=== PATIENT | female | born 1970 ===

== ENCOUNTER 2016-09-10 08:10 | Day surgery (SDC) | payer OTHER ==
[2016-09-10 09:50] VITALS: BMI 27.9
[2016-09-10] MEDS ORDERED: Propofol 10 mg/ml Inj (20 ML) ONE (10:54)
[2016-09-10 13:39] VITALS: TEMP 98.4; O2SAT 99
[2016-09-10 13:43] VITALS: BP 107/59; PULSE 53; RESP 15
== END 2016-09-10 13:46 | disposition home or self-care (01) ==
LOC: C.ENDO 08:10
PROVIDERS: ATTEND Internal Medicine Gastroenterology
DX: K29.50 Unspecified chronic gastritis without bleeding (principal); K20.9 Esophagitis, unspecified; B96.81 Helicobacter pylori [H. pylori] as the cause of diseases classified elsewhere
CPT/HCPCS: 43239; 84703; 88305; 88312; 88342; J2704; J3010

== ENCOUNTER 2017-02-13 18:59 | Emergency (ER) | payer SELFPAY ==
[2017-02-13 18:59] VITALS: BMI 31.8
[2017-02-13 19:13] VITALS: RESP 18
[2017-02-13] MEDS ORDERED: Sodium Chloride 0.9% 1,000 ML IV ONE (19:32)
[2017-02-13] MEDS ORDERED: Sodium Chloride 0.9% 1,000 ML ONE (19:35)
[2017-02-13 19:43] LABS: BASO # 0.1 K/uL (0.0-0.2); BASO % 0.6 % (0.0-2.0); EOS # 0.2 K/uL (0.0-0.7); EOS % 1.8 % (0.0-4.0); HEMATOCRIT 35.9 % (34.0-47.0); LYMPH % 28.1 % (20.0-40.0); MEAN CELL VOLUME 91.4 fL (81.0-99.0); MEAN CORPUSCULAR HEMOGLOBIN 31.2 pg (27.0-31.0); MEAN CORPUSCULAR HGB CONC 34.2 g/dL (33.0-37.0); MEAN PLATELET VOLUME 8.3 fL (7.2-11.7); MONO # 0.6 K/uL (0.0-0.8); MONO % 5.8 % (0.0-10.0); NRBC % 0.1 % (0.0-2.0); RED CELL DISTRIBUTION WIDTH 12.9 % (11.5-14.5); WHITE BLOOD COUNT 10.5 K/uL (4.8-10.8)
[2017-02-13 19:51] LABS: CHLORIDE 101 mmol/L (98-107); POTASSIUM 3.7 mmol/L (3.6-5.2); SODIUM 137 mmol/L (132-148)
[2017-02-13 19:53] LABS: GFR AFRICAN-AMERICAN > 60
[2017-02-13 19:54] LABS: ALB/GLOB RATIO 1.3 (1.0-2.1); ALKALINE PHOSPHATASE 48 U/L (38-126); ALT/SGPT 29 U/L (9-52); AST/SGOT 30 U/L (14-36); BLOOD UREA NITROGEN 14 mg/dL (7-17); CALCIUM 8.8 mg/dl (8.6-10.4); CARBON DIOXIDE 23 mmol/L (22-30); GLUCOSE,RANDOM 100 mg/dL (65-105); RBC URINE 14 /hpf (0-3); TOTAL PROTEIN 7.6 g/dL (6.3-8.3); TRANSITIONAL EPITHIAL 1 /hpf (0-3); URINE BACTERIA MOD (<OCC); WBC URINE 20 /hpf (0-5)
[2017-02-13 19:55] LABS: PH,URINE 6.5 (5.0-8.0); URINE BILIRUBIN NEGATIVE (NEGATIVE); URINE BLOOD 3+ (NEGATIVE); URINE COLOR YELLOW (YELLOW); URINE GLUCOSE (UA) NEGATIVE (Normal); URINE KETONE NEGATIVE (NEGATIVE)
[2017-02-13 19:56] LABS: URINE LEUKOCYTE ESTERASE 1+ Leu/uL (Negative); URINE PROTEIN 30 mg/dL (NEGATIVE)
[2017-02-13] MEDS ORDERED: cefTRIAXone IV 1 gm in Dextros 50 ML IVPB ONE ×2 (20:00→20:25)
--- NOTE | 2017-02-13 20:00 | C.PDOC ---
History Of Present Illness The patient presents today with complaints of left abdominal pain with associated nausea and vomiting since yesterday. The patient denies any associated fever or chills. She offers no additional medical complaints. Time Seen by Provider: 02/13/17 19:59 Chief Complaint (Nursing): Abdominal Pain History Per: Patient History/Exam Limitations: no limitations Onset/Duration Of Symptoms: Days Current Symptoms Are (Timing): Still Present Severity: Moderate Location Of Pain/Discomfort: LLQ Radiation Of Pain To:: None Quality Of Discomfort: "Pain" Associated Symptoms: Nausea, Vomiting. denies: Fever, Chills Alleviating Factors: None Past Medical History Vital Signs: Last Vital Signs Temp 97.9 F 02/13/17 19:09 Pulse 58 L 02/13/17 22:01 Resp 18 02/13/17 22:01 BP 99/53 L 02/13/17 22:01 Pulse Ox 97 02/13/17 22:33 - Medical History PMH: Anxiety, Asthma, Depression, Gall Bladder Disease, HTN Denies: Chronic Kidney Disease Surgical History: Cholecystectomy - [facility] Procedures PACKED CELL TRANSFUSION (05/14/13) Family History: States: No Known Family Hx - Social History Hx Tobacco Use: No Hx Alcohol Use: No Hx Substance Use: No - Immunization History Hx Tetanus Toxoid Vaccination: No Hx Influenza Vaccination: No Hx Pneumococcal Vaccination: No Review Of Systems Constitutional: Negative for: Fever, Chills Gastrointestinal: Positive for: Nausea, Vomiting, Abdominal Pain Physical Exam - Physical Exam Appears: Other (in moderate discomfort) Skin: Warm, Dry Head: Normacephalic Eye(s): bilateral: Normal Inspection Oral Mucosa: Moist Neck: Supple Cardiovascular: Rhythm Regular Respiratory: No Normal Breath Sounds, No Accessory Muscle Use Gastrointestinal/Abdominal: Bowel Sounds, Soft, Tenderness (left lower quadrant tenderness, mild suprapubic discomfort noted), No Mass, No Guarding, No Rebound Extremity: No Deformity, No Swelling Neurological/Psych: Oriented x3, Normal Speech, Normal Cognition ED Course And Treatment - Laboratory Results Result Diagrams: 02/13/17 19:39 02/13/17 19:39 O2 Sat by Pulse Oximetry: 97 (RA) Pulse Ox Interpretation: Normal - CT Scan/US US Other Rad Studies (CT/US): Read By Radiologist CT/US Interpretation: EXAM: US First Trimester (transabdominal and transvaginal). EXAM DATE/TIME: 02/13/17 (8:23pm). CLINICAL HISTORY: 47 year old female. Left flank / left-sided pelvic pain. LLQ pain. Gestational age or LMP: 12/23/16. History of 2 C-sections. Patient history: Possible ureterocele seen in the bladder on today's. US. Serum hCG = 12,328 units. TECHNIQUE: Real-time transabdominal and transvaginal obstetrical ultrasound of the maternal pelvis and a first. trimester with image documentation. COMPARISON: CT ABDOMEN PELVIS of 07/24/15. FINDINGS: The LMP is reported to be: 12/23/16. A small intrauterine fluid collection is seen --- probably an early intrauterine gestational sac. If this. represents an early sac, it corresponds to an expected age = 7 weeks 4 days (MSD = 27.2 mm). No pole and no yolk sac are seen. The uterus is anteverted, measuring 11.5 x 5.6 x 6.4 cm in dimensions. A few Nabothian cysts are noted. The maternal right ovary measures 4.6 x 2.7 x 3.7 cm in dimensions. Two (2) adjacent right ovarian cysts (2.7 cm and 1.9 cm avg. size, respectively). The left ovary measures 2.7 x 2.5 x 2.8 cm in dimensions. Simple left ovarian cyst (2.1 cm avg. size). There is no evidence of torsion on Doppler evaluation. No free pelvic fluid is appreciated. No solid adnexal masses are noted. The cervix is closed, at 3.2 cm length. Possible small left-sided ureterocele (seen on urinary bladder images). IMPRESSION: A small intrauterine fluid collection is seen --- compatible with an early intrauterine gestational sac. Its. size corresponds to an expected age = 7 weeks 4 days (based on the MSD = 27.2 mm). No pole and no yolk sac are seen. Incidental note made of a possible left-sided ureterocele. The findings are compatible with failure. Progress Note: IV fluids and ceftriaxone ordered. US OB ordered. Reevaluation Time: 22:39 Reassessment Condition: Improved Medical Decision Making Medical Decision Making: Upon provider reevaluation patient is feeling better, is medically stable, and requires no further treatment in the ED at this time. Patient will be discharged home with Rx for macrobid . Counseling was provided and all questions were answered regarding diagnosis and need for follow up with the referred clinic. There is agreement to discharge plan. Return if symptoms persist or worsen. Disposition Counseled Patient/Family Regarding: Studies Performed, Diagnosis, Need For Followup, Rx Given - Disposition Referrals: [facility] [Outside] [facility] [Outside] Disposition: HOME/ ROUTINE Disposition Time: 20:00 Condition: FAIR Prescriptions: Nitrofurantoin Macrocrystals [Macrobid] 1 cap PO BID #14 cap Instructions: Urinary Tract Infection in (ED), Threatened Miscarriage (ED) Forms: [facility] (Belarusian) Print Language: PERSIAN - Clinical Impression Clinical Impression: Abdominal pain, Miscarriage - Scribe Statement The provider has reviewed the documentation as recorded by the Jimmy Morley Provider Attestation: All medical record entries made by the Jimmy were at my direction and personally dictated by me. I have reviewed the chart and agree that the record accurately reflects my personal performance of the history, physical exam, medical decision making, and the department course for this patient. I have also personally directed, reviewed, and agree with the discharge instructions and disposition.
[2017-02-13 23:07] VITALS: BP 103/59; PULSE 69; TEMP 97.7; O2SAT 98
--- NOTE | 2017-02-14 09:22 | US ---
PROCEDURE: OB Pelvic Ultrasound HISTORY: llq pain COMPARISON: None available. FINDINGS: UTERUS: Intrauterine gestational sac. Sac diameter corresponds to 7 weeks 4 days. No pole or yolk sac visualized. No cardiac activity identified. The gestational sac is somewhat deformed. Findings are consistent with demise. There is no subchorionic hemorrhage. Uterus measures 11.5 x 5.6 x 6.4 cm. No mass CERVIX: 3.3 cm. Cervix closed. RIGHT OVARY: Measures 4.6 x 2.7 x 3.7 cm. No mass. Normal flow. Two right ovarian cysts, 2.5 x 2.8 x 2.9 cm and 1.8 x 1.8 x 2.2 cm. No solid mass. . LEFT OVARY: Measures 2.7 x 2.5 x 2.8 cm. No mass. Normal flow. Simple cyst, 1.8 x 2.4 x 2.2 cm. FREE FLUID: None. OTHER FINDINGS: Incidentally noted is questionable ureterocele at left bladder base. IMPRESSION: Findings consistent with demise. No pole or cardiac activity identified. Deformed gestational sac corresponds to 7 weeks 4 days. No subchorionic hemorrhage. Bilateral simple ovarian cysts. No evidence of ovarian torsion. Questionable small ureterocele of left bladder base. Preliminary interpretation of this examination was reported by [employer] [facility] at 10:28 p.m. on 02/13/2017. There is concurrence of this report with the preliminary interpretation.
== END 2017-02-13 23:20 | disposition home or self-care (01) ==
LOC: C.ER 18:59
DX: O03.9 Complete or unspecified spontaneous abortion without complication (principal); R10.32 Left lower quadrant pain
CPT/HCPCS: 76805; 76817; 80053; 81001; 84702; 85025; 96374; 99285; J0696; J7040

== ENCOUNTER 2017-02-26 18:47 | Emergency (ER) | payer OTHER ==
[2017-02-26 18:48] VITALS: BMI 31.8
[2017-02-26 18:55] VITALS: RESP 20
--- NOTE | 2017-02-26 19:22 | C.PDOC ---
History Of Present Illness 47 year old female presents to the ED with complaints of vaginal bleeding beginning this morning with associated sever abdominal cramping. Patient was seen in ED on 02/13/2017 and was diagnosed with a failed . She has a surgical history of two c-sections previously and was not experiencing vaginal bleeding or discharge at the time. Patient notes vaginal bleeding and passing of clots when using the bathroom. She denies nausea, vomiting, fever, chills, or dysuria. Time Seen by Provider: 02/26/17 18:59 Chief Complaint (Nursing): Female Genitourinary History Per: Patient History/Exam Limitations: no limitations Onset/Duration Of Symptoms: Hrs Current Symptoms Are (Timing): Still Present Severity: Severe Quality Of Discomfort: Cramping Associated Symptoms: denies: Fever, Chills, Nausea, Vomiting Alleviating Factors: None Recent travel outside of the [place]: No Abnormal Vaginal Bleeding: Yes Past Medical History Reviewed: Historical Data, Nursing Documentation, Vital Signs Vital Signs: Last Vital Signs Temp 97.8 F 02/26/17 18:53 Pulse 66 02/26/17 18:53 Resp 20 02/26/17 18:53 BP 130/75 02/26/17 18:53 Pulse Ox 97 02/26/17 21:59 - Medical History PMH: Anxiety, Asthma, Depression, Gall Bladder Disease, HTN Surgical History: Cholecystectomy - [facility] Procedures PACKED CELL TRANSFUSION (05/14/13) Family History: States: Unknown Family Hx - Social History Hx Tobacco Use: No Hx Alcohol Use: No Hx Substance Use: No - Immunization History Hx Tetanus Toxoid Vaccination: No Hx Influenza Vaccination: No Hx Pneumococcal Vaccination: No Review Of Systems Constitutional: Negative for: Fever, Chills Cardiovascular: Negative for: Chest Pain Respiratory: Negative for: Shortness of Breath Gastrointestinal: Positive for: Abdominal Pain. Negative for: Nausea, Vomiting Genitourinary: Positive for: Vaginal Bleeding. Negative for: Dysuria Physical Exam - Physical Exam Appears: Non-toxic, In Acute Distress (standing next to stress, appears to be in moderate distress) Skin: Warm, Dry Head: Atraumatic Eye(s): bilateral: Normal Inspection Oral Mucosa: Moist Neck: Supple Chest: Symmetrical, No Deformity Cardiovascular: Rhythm Regular, No Murmur Respiratory: Normal Breath Sounds, No Rales, No Rhonchi, No Wheezing Gastrointestinal/Abdominal: Soft, Tenderness (mild suprapubic tenderness ), No Distention, No Guarding, No Rebound Pelvic: No Vaginal Bleeding, No Cervical Motion Tenderness, No Cervix Open ( cervix is closed ), Enlarged Uterus, Tender Uterus Neurological/Psych: Oriented x3 ED Course And Treatment - Laboratory Results Result Diagrams: 02/26/17 19:27 02/26/17 19:27 Interpretation Of Abnormal: WBC slightly elevated. BHCG 43. O2 Sat by Pulse Oximetry: 97 (room air ) Pulse Ox Interpretation: Normal - CT Scan/US US Pelvis Other Rad Studies (CT/US): Read By Radiologist, Radiology Report Reviewed CT/US Interpretation: Impression: 1. No intrauterine gestation. Findings compatible with spontaneous . 2. Heterogeneous material within cervix, likely clot. Clinical correlation is needed. 3. Left Ovarian Cyst. Progress Note: Labs and pelvic US were ordered. Patient was given morphine. Reevaluation Time: 22:33 Reassessment Condition: Improved (Patient appears mroe comfortable.) Disposition Counseled Patient/Family Regarding: Studies Performed, Diagnosis, Need For Followup, Rx Given - Disposition Referrals: [facility] [Outside] Disposition: HOME/ ROUTINE Disposition Time: 22:33 Condition: IMPROVED Prescriptions: Acetaminophen with Codeine [Tylenol with Codeine #3 Tablet] 1 each PO Q4 PRN # 14 tablet PRN Reason: Pain, Severe (8-10) Instructions: Spontaneous Miscarriage (ED) Forms: [employer] (Syriac) Print Language: NIGERIEN - Clinical Impression Clinical Impression: Spontaneous - Scribe Statement The provider has reviewed the documentation as recorded by the Mechelleibles Alonso All medical record entries made by the Mechelleibles were at my direction and personally dictated by me. I have reviewed the chart and agree that the record accurately reflects my personal performance of the history, physical exam, medical decision making, and the department course for this patient. I have also personally directed, reviewed, and agree with the discharge instructions and disposition.
[2017-02-26 19:33] LABS: BASO # 0.1 K/uL (0.0-0.2); EOS # 0.3 K/uL (0.0-0.7); EOS % 1.9 % (0.0-4.0); HEMATOCRIT 36.5 % (34.0-47.0); LYMPH # 3.9 K/uL (1.0-4.3); MEAN CELL VOLUME 91.8 fL (81.0-99.0); MEAN CORPUSCULAR HEMOGLOBIN 31.1 pg (27.0-31.0); MEAN CORPUSCULAR HGB CONC 33.9 g/dL (33.0-37.0); MEAN PLATELET VOLUME 8.6 fL (7.2-11.7); MONO # 0.7 K/uL (0.0-0.8); MONO % 4.9 % (0.0-10.0); RED CELL DISTRIBUTION WIDTH 12.7 % (11.5-14.5); WHITE BLOOD COUNT 13.9 K/uL (4.8-10.8)
[2017-02-26 19:42] LABS: CHLORIDE 96 mmol/L (98-107); POTASSIUM 3.6 mmol/L (3.6-5.2); SODIUM 136 mmol/L (132-148)
[2017-02-26 19:44] LABS: BILIRUBIN,TOTAL 0.5 mg/dL (0.2-1.3); GFR AFRICAN-AMERICAN > 60
[2017-02-26 19:45] LABS: ALB/GLOB RATIO 1.4 (1.0-2.1); ALKALINE PHOSPHATASE 66 U/L (38-126); ALT/SGPT 32 U/L (9-52); AST/SGOT 25 U/L (14-36); BLOOD UREA NITROGEN 16 mg/dL (7-17); CARBON DIOXIDE 23 mmol/L (22-30); GLUCOSE,RANDOM 80 mg/dL (65-105); TOTAL PROTEIN 7.3 g/dL (6.3-8.3)
--- NOTE | 2017-02-26 21:53 | US ---
EXAM: US First Trimester, Transabdominal CLINICAL HISTORY: 47 years old, female; Pain; Pelvic pain; Additional info: Vaginal bleeding TECHNIQUE: Real-time transabdominal obstetrical ultrasound of the maternal pelvis and a first trimester with image documentation. COMPARISON: US - PREG 1ST TRIMESTER/OB TV 02/13/2017 8:53:05 PM FINDINGS: Gestation: No intrauterine gestational sac. Uterus/cervix: Endometrium: 1.0 cm in thickness. Heterogeneous echogenicity within cervix. Ovaries: RIGHT ovary: Not visualized. LEFT ovary: 2.5 x 1.8 x 2.8 cm anechoic lesion. No adnexal masses. Free fluid: No significant free fluid. IMPRESSION: 1. No intrauterine gestation. Findings compatible with spontaneous . 2. Heterogeneous material within cervix, likely clot. Clinical correlation is needed. 3. LEFT ovarian cyst. EXAM: US , Transvaginal CLINICAL HISTORY: 47 years old, female; Pain; Pelvic pain; Additional info: Vaginal bleeding TECHNIQUE: Real-time transvaginal obstetrical ultrasound of the maternal pelvis and a first trimester with image documentation. Transvaginal imaging was used for better evaluation of the fetus and adnexa. COMPARISON: US - PREG 1ST TRIMESTER/OB TV 02/13/2017 8:53:05 PM FINDINGS: Gestation: No intrauterine gestational sac. Uterus/cervix: Endometrium: 1.0 cm in thickness. Heterogeneous echogenicity within cervix. Ovaries: RIGHT ovary: Not visualized. LEFT ovary: 2.5 x 1.8 x 2.8 cm anechoic lesion. No adnexal masses. Free fluid: No significant free fluid.
[2017-02-26 22:05] LABS: RBC URINE 112 /hpf (0-3); URINE BACTERIA RARE (<OCC); URINE BILIRUBIN NEGATIVE (NEGATIVE); URINE BLOOD 3+ (NEGATIVE); URINE COLOR Yellow (YELLOW); URINE GLUCOSE (UA) NORMAL (Normal); URINE KETONE NEGATIVE (NEGATIVE); URINE LEUKOCYTE ESTERASE 2+ Leu/uL (Negative); URINE PROTEIN 2+ mg/dL (NEGATIVE); URINE UROBILINOGEN NORMAL mg/dL (0.2-1.0); WBC URINE 95 /hpf (0-5)
[2017-02-26 22:54] VITALS: BP 130/70; PULSE 74; TEMP 98; O2SAT 98
== END 2017-02-26 22:52 | disposition home or self-care (01) ==
LOC: C.ER 18:47
DX: O03.9 Complete or unspecified spontaneous abortion without complication (principal)
CPT/HCPCS: 76830; 76856; 80053; 81001; 84702; 84703; 85025; 96374; 96376; 99285; J2270

== ENCOUNTER 2017-09-27 09:51 | Emergency (ER) | payer OTHER ==
[2017-09-27 10:03] VITALS: BMI 29.2
[2017-09-27 10:08] VITALS: RESP 18
[2017-09-27] MEDS ORDERED: Sodium Chloride 0.9% 1,000 ML IV ONE (10:18)
--- NOTE | 2017-09-27 10:18 | C.PDOC ---
History Of Present Illness 47 year old female presents to the emergency department with complaints of pelvic pain described as cramping persisting since yesterday, and bright red vaginal bleeding with onset today. Patient reports that she is currently two months , , and reports having miscarriages in 2016 and 2017. Patient denies fever, chest pain, shortness of breath, vomiting, and diarrhea. Time Seen by Provider: 09/27/17 09:57 Chief Complaint (Nursing): Abdominal Pain History Per: Patient Onset/Duration Of Symptoms: Days (1) Location Of Pain/Discomfort: Other (pelvic) Quality Of Discomfort: Cramping Associated Symptoms: Other (vaginal bleeding, no shortness of breath, ). denies : Vomiting, Diarrhea, Chest Pain : 10 Para: 7 Miscarriage: 2 Past Medical History Reviewed: Historical Data, Nursing Documentation, Vital Signs Vital Signs: Last Vital Signs Temp 98 F 09/27/17 12:36 Pulse 78 09/27/17 12:36 Resp 18 09/27/17 12:36 BP 106/76 09/27/17 12:36 Pulse Ox 97 09/27/17 12:43 - Medical History PMH: Anxiety, Asthma, Depression, Gall Bladder Disease, HTN Denies: Chronic Kidney Disease Surgical History: Cholecystectomy - [facility] Procedures PACKED CELL TRANSFUSION (05/14/13) Family History: States: No Known Family Hx - Social History Hx Tobacco Use: No Hx Alcohol Use: No Hx Substance Use: No - Immunization History Hx Tetanus Toxoid Vaccination: No Hx Influenza Vaccination: No Hx Pneumococcal Vaccination: No Review Of Systems Except As Marked, All Systems Reviewed And Found Negative. Constitutional: Negative for: Fever Cardiovascular: Negative for: Chest Pain Respiratory: Negative for: Shortness of Breath Gastrointestinal: Positive for: Abdominal Pain (pelvic). Negative for: Vomiting , Diarrhea Genitourinary: Positive for: Vaginal Bleeding ("bright red") Physical Exam - Physical Exam Appears: In Acute Distress (mildly uncomfortable) Cardiovascular: Rhythm Regular Respiratory: Normal Breath Sounds Gastrointestinal/Abdominal: Tenderness (mild suprapubic), No Guarding, No Rebound ED Course And Treatment - Laboratory Results Result Diagrams: 09/27/17 10:45 09/27/17 10:45 O2 Sat by Pulse Oximetry: 97 (RA) Pulse Ox Interpretation: Normal - CT Scan/US TRANSVAGINAL US Other Rad Studies (CT/US): Read By Radiologist, Radiology Report Reviewed CT/US Interpretation: Accession No. : [id number]. Patient Name / ID : DEVANTE JACQUES / [id number]. Exam Date : 09/27/2017 11:14:37 ( Approved ). Study Comment : Sex / Age : F / 47Y. Creator : Miguel Koenig MD. Dictator : Ladle Car Operator : Administrative Assistant Coordinator : Miguel Koenig MD. Approver2 : Report Date : 09/27/2017 12:28:04. My Comment : . PROCEDURE: Pelvic ultrasound dated 09/27/2017. HISTORY: PELVIC PAIN, BLEEDING, . COMPARISON: Comparison made with prior pelvic ultrasound 03/18/2017. TECHNIQUE : Transabdominal/ transvaginal sonographic evaluation of the pelvis performed. FINDINGS: The uterus anteverted measuring approximately 10.5 x 4.7 x 5.5 cm. Endometrial stripe measures 9 mm. No evidence of intrauterine gestation. The possibility of ectopic cannot be excluded based on this study. Clinical correlation recommended. Follow-up pelvic ultrasound and serial serum beta HCG recommended to exclude the possibility of an ectopic . Cervix measures 3.2 cm with several small nabothian cysts. The right ovary measures approximately 2.8 x 2.5 x 2.9 cm and exhibits arterial flow. Left ovary measures approximately 2.0 x 1.7 x 2.0 cm and also exhibits arterial flow. IMPRESSION: No evidence of intrauterine gestation ; recommend followup serial serum beta HCG and pelvic ultrasound to exclude hospital ectopic which cannot be excluded based on this study. . Findings discussed with Dr. Rick findings are approximately 12:20 p.m. with written down and read back verification. Progress Note: Plan: Bloodwork. CMP. IV Fluids. Urinalysis. US Transvaginal Disposition Counseled Patient/Family Regarding: Studies Performed, Diagnosis, Need For Followup - Disposition Referrals: [facility] [Outside] Disposition: HOME/ ROUTINE Disposition Time: 12:45 Condition: STABLE Additional Instructions: RETURN TO EMERGENCY ROOM IN 48 HOURS FOR REPEAT HORMONE LEVEL, ULTRASOUND USE TYLENOL NEEDED FOR PAIN VUELVA A LA GOLD DE EMERGENCIAS EN 48 HORAS PARA REPETIR EL NIVEL DE HORMONA, ULTRASONIDO USE TYLENOL SEGN SEA NECESARIO PARA DOLOR Instructions: Threatened Miscarriage (DC) Forms: [email or web address] (Yakut) Print Language: MONTSERRATIAN - POA Present On Arrival: None - Clinical Impression Clinical Impression: Miscarriage, Vaginal bleeding during - Scribe Statement The provider has reviewed the documentation as recorded by the Scribe (Dougie Kaminski) Provider Attestation: All medical record entries made by the Scribe were at my direction and personally dictated by me. I have reviewed the chart and agree that the record accurately reflects my personal performance of the history, physical exam, medical decision making, and the department course for this patient. I have also personally directed, reviewed, and agree with the discharge instructions and disposition.
[2017-09-27] MEDS ORDERED: Sodium Chloride 0.9% 1,000 ML ONE (10:23)
[2017-09-27 10:51] LABS: BASO % 0.6 % (0.0-2.0); EOS # 0.1 K/uL (0.0-0.7); EOS % 1.7 % (0.0-4.0); HEMOGLOBIN 12.6 g/dL (11.0-16.0); LYMPH # 2.1 K/uL (1.0-4.3); LYMPH % 32.4 % (20.0-40.0); MEAN CELL VOLUME 89.9 fL (81.0-99.0); MEAN CORPUSCULAR HEMOGLOBIN 31.1 pg (27.0-31.0); MEAN CORPUSCULAR HGB CONC 34.6 g/dL (33.0-37.0); MEAN PLATELET VOLUME 8.4 fL (7.2-11.7); MONO # 0.5 K/uL (0.0-0.8); MONO % 7.1 % (0.0-10.0); NEUT # 3.8 K/uL (1.8-7.0); NEUT % 58.2 % (50.0-75.0); NRBC % 0.2 % (0.0-2.0); RBC 4.06 Mil/uL (3.80-5.20); RED CELL DISTRIBUTION WIDTH 12.9 % (11.5-14.5); WHITE BLOOD COUNT 6.5 K/uL (4.8-10.8)
[2017-09-27 10:58] LABS: SQUAMOUS EPITHIAL 27 /hpf (0-5); URINE BILIRUBIN NEGATIVE (NEGATIVE); URINE BLOOD 3+ (NEGATIVE); URINE CLARITY Hazy (Clear); URINE COLOR Amber (YELLOW); URINE GLUCOSE (UA) 1+ mg/dL (Normal); URINE LEUKOCYTE ESTERASE TRACE Leu/uL (Negative); URINE PROTEIN 2+ mg/dL (NEGATIVE); URINE UROBILINOGEN NORMAL mg/dL (0.2-1.0)
[2017-09-27 11:12] LABS: ALB/GLOB RATIO 1.2 (1.0-2.1); ALBUMIN 3.9 g/dL (3.5-5.0); ALT/SGPT 121 U/L (9-52); AST/SGOT 139 U/L (14-36); BLOOD UREA NITROGEN 10 mg/dL (7-17); CALCIUM 8.5 mg/dl (8.6-10.4); GFR AFRICAN-AMERICAN > 60; GFR NON-AFRICAN AMERICAN > 60
[2017-09-27] MEDS ORDERED: Potassium Chloride 20 mEq ER Tab PO STA (11:45)
[2017-09-27] MEDS ORDERED: Potassium Chloride 20 mEq ER Tab PO ONE (11:52)
--- NOTE | 2017-09-27 12:29 | US ---
PROCEDURE: Pelvic ultrasound dated 09/27/2017. HISTORY: PELVIC PAIN, BLEEDING, COMPARISON: Comparison made with prior pelvic ultrasound 03/18/2017 TECHNIQUE: Transabdominal/ transvaginal sonographic evaluation of the pelvis performed FINDINGS: The uterus anteverted measuring approximately 10.5 x 4.7 x 5.5 cm. Endometrial stripe measures 9 mm. No evidence of intrauterine gestation. The possibility of ectopic cannot be excluded based on this study. Clinical correlation recommended. Follow-up pelvic ultrasound and serial serum beta HCG recommended to exclude the possibility of an ectopic . Cervix measures 3.2 cm with several small nabothian cysts. The right ovary measures approximately 2.8 x 2.5 x 2.9 cm and exhibits arterial flow. Left ovary measures approximately 2.0 x 1.7 x 2.0 cm and also exhibits arterial flow. IMPRESSION: No evidence of intrauterine gestation ; recommend followup serial serum beta HCG and pelvic ultrasound to exclude hospital ectopic which cannot be excluded based on this study. . Findings discussed with Dr. Rick findings are approximately 12:20 p.m. with written down and read back verification.
[2017-09-27 12:36] VITALS: BP 106/76; PULSE 78; TEMP 98
[2017-09-27 12:43] VITALS: O2SAT 97
== END 2017-09-27 13:00 | disposition home or self-care (01) ==
LOC: C.ER 09:51
DX: O03.9 Complete or unspecified spontaneous abortion without complication (principal)
CPT/HCPCS: 76830; 76856; 80053; 81001; 84702; 85025; 86850; 86900; 96360; 99285; J7040

== ENCOUNTER 2018-01-31 11:04 | Observation (INO) | payer OTHER ==
[2018-01-31 11:04] VITALS: BMI 32.3
[2018-01-31] MEDS ORDERED: Dexamethasone 4 mg/1 ml IVP STA (12:04)
[2018-01-31] MEDS ORDERED: Sodium Chloride 0.9% 1,000 ML IV STA (12:04)
[2018-01-31] MEDS ORDERED: DiphenhydrAMINE 50 mg/ml Inj IVP STA (12:04)
[2018-01-31] MEDS ORDERED: DiphenhydrAMINE 50 mg/ml Inj ONE (12:17)
[2018-01-31] MEDS ORDERED: Dexamethasone 4 mg/1 ml ONE (12:18)
[2018-01-31 12:31] LABS: BASO % 0.3 % (0.0-2.0); EOS # 0.2 K/uL (0.0-0.7); EOS % 2.5 % (0.0-4.0); HEMOGLOBIN 12.8 g/dL (11.0-16.0); LYMPH # 1.8 K/uL (1.0-4.3); LYMPH % 21.3 % (20.0-40.0); MEAN CELL VOLUME 90.5 fL (81.0-99.0); MEAN CORPUSCULAR HGB CONC 34.2 g/dL (33.0-37.0); MEAN PLATELET VOLUME 8.8 fL (7.2-11.7); MONO # 0.6 K/uL (0.0-0.8); MONO % 7.2 % (0.0-10.0); NEUT # 5.8 K/uL (1.8-7.0); NEUT % 68.7 % (50.0-75.0); NRBC % 0.1 % (0.0-2.0); RBC 4.15 Mil/uL (3.80-5.20); WHITE BLOOD COUNT 8.4 K/uL (4.8-10.8)
--- NOTE | 2018-01-31 12:46 | C.PDOC ---
History Of Present Illness 48 year old female presents to the emergency department with complaints of a sore throat since 3 days ago. Patient states that she took naproxen last night and woke up with a swollen face this morning. She also feels discomfort and itchy feeling in her throat but denies any fever, vomiting, breathing problems, or changes in her voice. Time Seen by Provider: 01/31/18 11:27 Chief Complaint (Nursing): Allergic Reaction History Per: Patient History/Exam Limitations: no limitations Onset/Duration Of Symptoms: Days Current Symptoms Are (Timing): Still Present Past Medical History Reviewed: Historical Data, Nursing Documentation, Vital Signs Vital Signs: Last Vital Signs Temp 98.6 F 01/31/18 17:06 Pulse 67 01/31/18 17:06 Resp 18 01/31/18 17:06 BP 100/62 01/31/18 17:06 Pulse Ox 97 01/31/18 18:11 - Medical History PMH: Anxiety, Asthma, Depression, Gall Bladder Disease, HTN Denies: Chronic Kidney Disease Surgical History: Cholecystectomy - [facility] Procedures PACKED CELL TRANSFUSION (05/14/13) Family History: States: No Known Family Hx - Social History Hx Tobacco Use: No Hx Alcohol Use: No Hx Substance Use: No - Immunization History Hx Tetanus Toxoid Vaccination: No Hx Influenza Vaccination: No Hx Pneumococcal Vaccination: No Review Of Systems Except As Marked, All Systems Reviewed And Found Negative. Constitutional: Negative for: Fever ENT: Positive for: Other (Itchy sore throat) Cardiovascular: Negative for: Orthopnea Respiratory: Negative for: Shortness of Breath Gastrointestinal: Negative for: Vomiting Neurological: Negative for: Weakness, Numbness Physical Exam - Physical Exam Appears: Non-toxic, No Acute Distress Skin: Warm, Dry Head: Atraumatic, Normacephalic, Swelling (on the upper part of face (lips, cheeks, around the eyes)) Eye(s): bilateral: Normal Inspection, PERRL, EOMI Ear(s): Bilateral: Normal Oral Mucosa: Moist, No Drooling Throat: Normal Neck: Normal, No Midline Cervical Tenderness, No Paracervical Tenderness, Supple , Other (Full ROM; no anterior tenderness) Respiratory: Normal Breath Sounds, No Rales, No Rhonchi, No Wheezing Neurological/Psych: Oriented x3, Normal Speech Gait: Steady ED Course And Treatment - Laboratory Results Result Diagrams: 01/31/18 12:26 01/31/18 12:26 O2 Sat by Pulse Oximetry: 97 (RA) Pulse Ox Interpretation: Normal - Other Rad Chest X-Ray X-Ray: Read By Radiologist Interpretation: FINDINGS: Examination limited by habitus and hypoinflation. LUNGS: No focal consolidation. Please note that chest x-ray has limited sensitivity for the detection of pulmonary masses. PLEURA: No significant pleural effusion identified. No definite pneumothorax . CARDIOVASCULAR: Heart size appears borderline enlarged. OSSEOUS STRUCTURES: Degenerative changes of the spine. VISUALIZED UPPER ABDOMEN: Unremarkable. OTHER FINDINGS: None. IMPRESSION: No focal consolidation, significant pleural effusion, or definite pneumothorax identified. Progress Note: Labs, chest x-ray, soft tissue neck x-ray, and urinalysis ordered. Patient was given Benadryl, decadron, Pepcid, solumedrol, heparin, and IV fluids. X-rays showed no acute fractures. Patient was observed in the ER for 5 hours but she was still swelling and states she feels the same. I spoke with hospitalist Dr. Dawkins and she accepted her to telemetry for observation. Disposition - Disposition Disposition: HOSPITALIZED Disposition Time: 16:26 Condition: FAIR - Clinical Impression Clinical Impression: Angioedema, Sore throat - PA / ASSURANCE SPECIALIST / Resident Statement MD/DO has reviewed & agrees with the documentation as recorded. - Scribe Statement The provider has reviewed the documentation as recorded by the Scribe Fallon Little All medical record entries made by the Scribe were at my direction and personally dictated by me. I have reviewed the chart and agree that the record accurately reflects my personal performance of the history, physical exam, medical decision making, and the department course for this patient. I have also personally directed, reviewed, and agree with the discharge instructions and disposition. Decision To Admit - Pt Status Changed To: Hospital Disposition Of: Observation - . Bed Request Type: Telemetry Admitting Physician: Sonia Dawkins Patient Diagnosis: Angioedema, Sore throat
[2018-01-31 12:47] LABS: CALCIUM 8.6 mg/dl (8.6-10.4); GFR NON-AFRICAN AMERICAN > 60
[2018-01-31 12:48] LABS: ALB/GLOB RATIO 1.5 (1.0-2.1); ALBUMIN 4.3 g/dL (3.5-5.0); ALT/SGPT 67 U/L (9-52); AST/SGOT 63 U/L (14-36); BLOOD UREA NITROGEN 19 mg/dL (7-17)
[2018-01-31 13:33] LABS: HCG,QUALITATIVE URINE NEGATIVE (NEGATIVE)
[2018-01-31 13:36] LABS: SQUAMOUS EPITHIAL 3 /hpf (0-5); URINE BILIRUBIN NEGATIVE (NEGATIVE); URINE BLOOD NEGATIVE (NEGATIVE); URINE CLARITY Hazy (Clear); URINE COLOR Amber (YELLOW); URINE GLUCOSE (UA) NORMAL (Normal); URINE LEUKOCYTE ESTERASE NEG Leu/uL (Negative); URINE PROTEIN 1+ mg/dL (NEGATIVE); URINE UROBILINOGEN NORMAL mg/dL (0.2-1.0)
--- NOTE | 2018-01-31 16:41 | RAD ---
HISTORY: sore throat, facial swelling COMPARISON: None available TECHNIQUE: Chest, one view. FINDINGS: Examination limited by habitus and hypoinflation. LUNGS: No focal consolidation. Please note that chest x-ray has limited sensitivity for the detection of pulmonary masses. PLEURA: No significant pleural effusion identified. No definite pneumothorax . CARDIOVASCULAR: Heart size appears borderline enlarged. OSSEOUS STRUCTURES: Degenerative changes of the spine. VISUALIZED UPPER ABDOMEN: Unremarkable. OTHER FINDINGS: None. IMPRESSION: No focal consolidation, significant pleural effusion, or definite pneumothorax identified.
--- NOTE | 2018-01-31 17:07 | CP.PCM.HP ---
History of Present Illness - History of Present Illness History of Present Illness: PGY-[address] Templeton Patient is a 48 year old female with no significant PMHx presents with acute lip /facial swelling and voice changes that started around 2pm. The patient denies any history of allergies. She had been feeling congested since but this morning her voice deepened and she noticed some swelling of the lips. Patient did take naproxen today but says she takes regularly without reaction. Pt denies any new nuts, fruits, insect bites. Patient denies having any shortness of breath but has experienced some throat tenderness. Pt denies fevers, dizziness, headache, wheezing, choking. Present on Admission - Present on Admission Any Indicators Present on Admission: No Past Patient History - Past Medical History & Family History Past Medical History?: Yes - Past Social History Smoking Status: Never Smoked - CARDIAC Hx Hypertension: Yes - PULMONARY Hx Asthma: Yes - NEUROLOGICAL Hx Neurological Disorder: No - HEENT Hx HEENT Problems: No - RENAL Hx Chronic Kidney Disease: No - ENDOCRINE/METABOLIC Hx Endocrine Disorders: No - HEMATOLOGICAL/ONCOLOGICAL Hx Blood Disorders: No - INTEGUMENTARY Hx Dermatological Problems: No - MUSCULOSKELETAL/RHEUMATOLOGICAL Hx Musculoskeletal Disorders: No - GASTROINTESTINAL Hx Gall Bladder Disease: Yes - GENITOURINARY/GYNECOLOGICAL Hx Genitourinary Disorders: No - PSYCHIATRIC Hx Anxiety: Yes Hx Depression: Yes Hx Substance Use: No - SURGICAL HISTORY Hx Cholecystectomy: Yes - ANESTHESIA Hx Anesthesia: Yes Hx Anesthesia Reactions: No Hx Malignant Hyperthermia: No Meds Allergies/Adverse Reactions: Allergies Allergy/AdvReac Type Severity Reaction Status Date / Time No Known Allergies Allergy Verified 09/27/17 10:04 Physical Exam - Head Exam Head Exam: ATRAUMATIC Additional comments: +Mild swelling of the lips, no erythema, exudate, or color changes appreciated - Eye Exam Eye Exam: EOMI, Normal appearance Pupil Exam: NORMAL ACCOMODATION - ENT Exam ENT Exam: Mucous Membranes Moist Additional comments: +Mild tonsilar swelling, airway patent. No erythema. - Neck Exam Neck exam: Positive for: Full Rom, Normal Inspection. Negative for: Lymphadenopathy, Tenderness, Thyromegaly - Respiratory Exam Respiratory Exam: Clear to Auscultation Bilateral, NORMAL BREATHING PATTERN. absent: Accessory Muscle Use, Chest Wall Tenderness, Decreased Breath Sounds, Rales, Rhonchi, Wheezes, Respiratory Distress - Cardiovascular Exam Cardiovascular Exam: REGULAR RHYTHM, RRR, +S1, +S2. absent: JVD - GI/Abdominal Exam GI & Abdominal Exam: Normal Bowel Sounds, Soft. absent: Rigid - Rectal Exam Rectal Exam: NORMAL INSPECTION - Extremities Exam Extremities exam: Positive for: normal inspection. Negative for: joint swelling , pedal edema - Neurological Exam Neurological exam: Alert, CN II-XII Intact, Oriented x3 - Skin Skin Exam: Dry, Normal Color, Warm Results - Vital Signs Recent Vital Signs: Last Vital Signs Temp 98.8 F 01/31/18 14:41 Pulse 64 01/31/18 14:41 Resp 16 01/31/18 14:41 BP 100/64 01/31/18 14:41 Pulse Ox 97 01/31/18 16:27 - Labs Result Diagrams: 01/31/18 12:26 01/31/18 12:26 Labs: Laboratory Results - last 24 hr 01/31/18 01/31/18 01/31/18 12:26 12:26 13:13 WBC 8.4 RBC 4.15 Hgb 12.8 Hct 37.6 MCV 90.5 MCH 31.0 MCHC 34.2 RDW 13.0 Plt Count 235 MPV 8.8 Neut % (Auto) 68.7 Lymph % (Auto) 21.3 Esmeralda % (Auto) 7.2 Eos % (Auto) 2.5 Baso % (Auto) 0.3 Neut # (Auto) 5.8 Lymph # (Auto) 1.8 Esmeralda # (Auto) 0.6 Eos # (Auto) 0.2 Baso # (Auto) 0.0 Sodium 138 Potassium 3.8 Chloride 104 Carbon Dioxide 21 L Anion Gap 17 BUN 19 H Creatinine 0.4 L Est GFR ( Amer) > 60 Est GFR (Non-Af Amer) > 60 Random Glucose 99 Calcium 8.6 Total Bilirubin 1.1 AST 63 H D ALT 67 H D Alkaline Phosphatase 76 Total Protein 7.2 Albumin 4.3 Globulin 2.9 Albumin/Globulin Ratio 1.5 Urine Color Claribel Urine Clarity Hazy Urine pH 5.0 Ur Specific [place] 1.035 H Urine Protein 1+ H Urine Glucose (UA) Normal Urine Ketones Negative Urine Blood Negative Urine Nitrate Negative Urine Bilirubin Negative Urine Urobilinogen Normal Ur Leukocyte Esterase Neg Urine WBC (Auto) 2 Urine RBC (Auto) 1 Ur Squamous Epith Cells 3 Urine HCG, Qual Negative Assessment & Plan - Assessment and Plan (Free Text) Assessment: 1) Facial/tongue swelling * Labs in ED - CBC w dif CMP * Admit for 24 hours observation * Benadry 25mg Stat in ED * Benadryl 25 mg q8h * Pepcid 20mg 20mg BID * Prednisone 60mg IVP BID * CXR 01/31: neg for acute pathology * Neck/soft tissue XR (01/31): Read pending 2) Prophylaxis * VTE: Heparine 5,00 U SC Q Rodri Wolff, PGY-1 Patient seen and discussed with Dr. Templeton
[2018-01-31] MEDS ORDERED: MethylPREDNISolone 40 mg Vial IVP SCH (18:00)
[2018-01-31] MEDS: MethylPREDNISolone 40 mg Vial IVP SCH (19:11)
[2018-01-31 23:50] VITALS: RESP 20
[2018-02-01 07:33] VITALS: BP 110/65; TEMP 97.6; O2SAT 97
[2018-02-01 07:57] VITALS: PULSE 68
[2018-02-01 08:29] LABS: BASO % 0.1 % (0.0-2.0); HEMOGLOBIN 12.5 g/dL (11.0-16.0); LYMPH # 1.9 K/uL (1.0-4.3); LYMPH % 14.3 % (20.0-40.0); MEAN CELL VOLUME 90.9 fL (81.0-99.0); MEAN CORPUSCULAR HEMOGLOBIN 30.9 pg (27.0-31.0); MEAN PLATELET VOLUME 9.1 fL (7.2-11.7); MONO # 0.4 K/uL (0.0-0.8); NEUT # 10.9 K/uL (1.8-7.0); NEUT % 82.6 % (50.0-75.0); RBC 4.04 Mil/uL (3.80-5.20); RED CELL DISTRIBUTION WIDTH 12.9 % (11.5-14.5)
[2018-02-01 08:33] LABS: ALB/GLOB RATIO 1.4 (1.0-2.1); ALBUMIN 4.2 g/dL (3.5-5.0); ALT/SGPT 70 U/L (9-52); AST/SGOT 36 U/L (14-36); BLOOD UREA NITROGEN 16 mg/dL (7-17); CALCIUM 8.9 mg/dl (8.6-10.4); GFR NON-AFRICAN AMERICAN > 60
[2018-02-01 08:34] LABS: WHITE BLOOD COUNT 13.2 K/uL (4.8-10.8)
[2018-02-01] MEDS ORDERED: Potassium Chloride 10 mEq ER Tab PO STA (08:55)
[2018-02-01] MEDS: MethylPREDNISolone 40 mg Vial IVP SCH (09:07)
--- NOTE | 2018-02-01 09:28 | RAD ---
Soft tissue neck exam 01/31/2018. History: Throat pain. Swollen face. Rule out epiglottitis. AP and lateral views of the neck with soft tissue technique performed. Findings: The current study reveals no evidence of significant prevertebral soft tissue swelling. The epiglottis does not appear significantly enlarged or edematous. Airway patent. Osseous structures unremarkable. Impression: No evidence to suggest epiglottitis. No significant prevertebral soft tissue swelling. . Consider followup CT scan of the neck if further evaluation is required
--- NOTE | 2018-02-01 10:58 | CP.PCM.DIS ---
Provider - Provider Date of Admission: 01/31/18 16:22 Attending physician: Sonia Dawkins DO Time Spent in preparation of Discharge (in minutes): 35 Hospital Course - Lab Results Lab Results: Most Recent Lab Values WBC 13.2 K/uL (4.8-10.8) H D 02/01/18 08:13 RBC 4.04 Mil/uL (3.80-5.20) 02/01/18 08:13 Hgb 12.5 g/dL (11.0-16.0) 02/01/18 08:13 Hct 36.7 % (34.0-47.0) 02/01/18 08:13 MCV 90.9 fL (81.0-99.0) 02/01/18 08:13 MCH 30.9 pg (27.0-31.0) 02/01/18 08:13 MCHC 34.0 g/dL (33.0-37.0) 02/01/18 08:13 RDW 12.9 % (11.5-14.5) 02/01/18 08:13 Plt Count 278 K/uL (130-400) 02/01/18 08:13 MPV 9.1 fL (7.2-11.7) 02/01/18 08:13 Neut % (Auto) 82.6 % (50.0-75.0) H 02/01/18 08:13 Lymph % (Auto) 14.3 % (20.0-40.0) L 02/01/18 08:13 [place] % (Auto) 3.0 % (0.0-10.0) 02/01/18 08:13 Eos % (Auto) 0.0 % (0.0-4.0) 02/01/18 08:13 Baso % (Auto) 0.1 % (0.0-2.0) 02/01/18 08:13 Neut # (Auto) 10.9 K/uL (1.8-7.0) H 02/01/18 08:13 Lymph # (Auto) 1.9 K/uL (1.0-4.3) 02/01/18 08:13 [place] # (Auto) 0.4 K/uL (0.0-0.8) 02/01/18 08:13 Eos # (Auto) 0.0 K/uL (0.0-0.7) 02/01/18 08:13 Baso # (Auto) 0.0 K/uL (0.0-0.2) 02/01/18 08:13 Sodium 139 mmol/L (132-148) 02/01/18 08:13 Potassium 3.4 mmol/L (3.6-5.2) L 02/01/18 08:13 Chloride 107 mmol/L (98-107) 02/01/18 08:13 Carbon Dioxide 21 mmol/L (22-30) L 02/01/18 08:13 Anion Gap 15 (10-20) 02/01/18 08:13 BUN 16 mg/dL (7-17) 02/01/18 08:13 Creatinine 0.5 mg/dL (0.7-1.2) L 02/01/18 08:13 Est GFR ( Amer) > 60 02/01/18 08:13 Est GFR (Non-Af Amer) > 60 02/01/18 08:13 Random Glucose 150 mg/dL (65-105) H 02/01/18 08:13 Calcium 8.9 mg/dl (8.6-10.4) 02/01/18 08:13 Total Bilirubin 0.4 mg/dL (0.2-1.3) 02/01/18 08:13 AST 36 U/L (14-36) D 02/01/18 08:13 ALT 70 U/L (9-52) H 02/01/18 08:13 Alkaline Phosphatase 85 U/L (38-126) 02/01/18 08:13 Total Protein 7.2 g/dL (6.3-8.3) 02/01/18 08:13 Albumin 4.2 g/dL (3.5-5.0) 02/01/18 08:13 Globulin 3.0 gm/dL (2.2-3.9) 02/01/18 08:13 Albumin/Globulin Ratio 1.4 (1.0-2.1) 02/01/18 08:13 Urine Color Claribel (YELLOW) 01/31/18 13:13 Urine Clarity Hazy (Clear) 01/31/18 13:13 Urine pH 5.0 (5.0-8.0) 01/31/18 13:13 Ur Specific [place] 1.035 (1.003-1.030) H 01/31/18 13:13 Urine Protein 1+ mg/dL (NEGATIVE) H 01/31/18 13:13 Urine Glucose (UA) Normal mg/dL (Normal) 01/31/18 13:13 Urine Ketones Negative mg/dL (NEGATIVE) 01/31/18 13:13 Urine Blood Negative (NEGATIVE) 01/31/18 13:13 Urine Nitrate Negative (NEGATIVE) 01/31/18 13:13 Urine Bilirubin Negative (NEGATIVE) 01/31/18 13:13 Urine Urobilinogen Normal mg/dL (0.2-1.0) 01/31/18 13:13 Ur Leukocyte Esterase Neg [place]/uL (Negative) 01/31/18 13:13 Urine WBC (Auto) 2 /hpf (0-5) 01/31/18 13:13 Urine RBC (Auto) 1 /hpf (0-3) 01/31/18 13:13 Ur Squamous Epith Cells 3 /hpf (0-5) 01/31/18 13:13 Urine HCG, Qual Negative (NEGATIVE) 01/31/18 13:13 - Hospital Course Hospital Course: Patient is a 48 year old female with no significant PMHx presents with acute lip /facial swelling and voice changes that started around 2pm. The patient denies any history of allergies. She had been feeling congested since but this morning her voice deepened and she noticed some swelling of the lips. Patient did take naproxen today but says she takes regularly without reaction. Pt denies any new nuts, fruits, insect bites. Patient denies having any shortness of breath but has experienced some throat tenderness. Pt denies fevers, dizziness, headache, wheezing, choking. On admission she had throat and lip swelling.No wheezing,no sob. Her swelling resolved on the same day. Solumedrol,benadryl and pepcid given. Asked to not to take Naproxen Discharge Exam - Head Exam Head Exam: ATRAUMATIC Discharge Plan - Follow Up Plan Condition: FAIR Disposition: HOME/ ROUTINE Instructions: Angioedema Referrals: Chiquita Henriquez MD [Staff Provider] -
== END 2018-02-01 12:36 | disposition home or self-care (01) ==
LOC: C.ER 11:04 → C.9E 16:22 → C.6T 17:08
PROVIDERS: ADMIT Hospitalist; ATTEND Hospitalist
DX: T78.3XXA Angioneurotic edema, initial encounter (principal); F32.9 Major depressive disorder, single episode, unspecified; F41.9 Anxiety disorder, unspecified; J02.9 Acute pharyngitis, unspecified; I10 Essential (primary) hypertension; J45.909 Unspecified asthma, uncomplicated
CPT/HCPCS: 36415; 70360; 71045; 80053; 81001; 84703; 85025; 96361; 96372; 96374; 96375; 96376; 99285; G0378; J1100; J1200; J1644; J2920; J7030